=== PATIENT | female | born 1945 | race Caucasian/White ===

== ENCOUNTER 2018-07-22 12:39 | Outpatient (CLI) | payer MEDICARE ==
[2018-07-22 15:09] LABS: #Basophils 0.1 thou/uL (0.0-0.2); #Eosinphils 0.9 thou/uL (0.0-0.7); #Lymphocytes 3.2 thou/uL (1.20-3.40); #Monocytes 0.9 thou/uL (0.11-0.59); #Neutrophils 3.8 thou/uL (1.40-6.50); %Basophils 0.7 % (0.0-1.0); %Lymphocytes 36.7 % (21.0-51.0); %Neutrophils 42.6 % (42.0-75.0); Hemoglobin 13.8 g/dL (12.0-16.0); Mean Corpuscular HGB CONC 32.5 g/dL (32.0-36.0); Mean Corpuscular Hemoglobin 28.7 pg (27.0-31.0); Mean Corpuscular Volume 88.4 fL (78.0-98.0); Mean Platelet Volume 10.6 fL (7.4-10.4); Platelet Count 269 thou/uL (130-400); RBC Distribution Width 12.8 % (11.5-14.5); White Blood Cell (WBC) Count 8.8 thou/uL (4.8-10.8)
[2018-07-22 15:15] LABS: INR-International Normal Ratio 0.9; Prothrombin Time 12.5 SEC (12.0-14.7)
[2018-07-22 15:22] LABS: Bilirubin Negative (Negative); Blood, Urine Small (Negative); Clarity TURBID (Clear); Glucose, Urine (Dipstick) Negative (Negative); Leukocyte Large (Negative); Nitrite Negative (Negative); Protein, Urine (Dipstick) Negative (Neg-Trace); Specific Gravity, Urine 1.014 (1.002-1.036); Urobilinogen 0.2 mg/dL (0.2-1.0)
[2018-07-22 15:30] LABS: Bacteria/HPF 1+ HPF (None Seen); Hyaline Casts/LPF 4-6 HYALINE CAST LPF (0-3 Hyaline); Pathc Cast-AUWi Flag 1.88 (0-2.49); Squamous Epithelial 21-50 HPF (0-3)
--- NOTE | 2018-07-22 15:50 | EKG ---
Test Reason : Blood Pressure : / mmHG Vent. Rate : 061 BPM Atrial Rate : 061 BPM P-R Int : 158 ms QRS Dur : 082 ms QT Int : 398 ms P-R-T Axes : 075 063 060 degrees QTc Int : 400 ms Normal sinus rhythm Normal ECG No previous ECGs available Confirmed by BABATUNDE CORONADO ([id number]) on 07/22/2018 3:49:33 PM Referred By: GEO Confirmed By:BABATUNDE CORONADO
[2018-07-22 15:51] LABS: Anion Gap 16 mmol/L (10-20); BUN (Urea Nitrogen) 18 mg/dL (9.8-20.1); Calc. Creatinine Clearance 0 mL/min (70-130); Calcium 9.5 mg/dL (7.8-10.44); Carbon Dioxide 22 mmol/L (23-31); Chloride 105 mmol/L (98-107); Estimated GFR-MDRD 28; Glucose 84 mg/dL (83-110); Potassium 5.9 mmol/L (3.5-5.1); Sodium 137 mmol/L (136-145)
== END 2018-07-22 12:40 | disposition home or self-care (01) ==
LOC: LABBT 12:39
PROVIDERS: ATTEND Orthopaedic Surgery
DX: Z01.818 Encounter for other preprocedural examination (principal)
CPT/HCPCS: 80048; 81001; 85025; 85610; 87081; 87086; 93005; 93010

== ENCOUNTER 2018-08-02 08:34 | Inpatient (IN) | payer MEDICARE ==
--- NOTE | 2018-07-29 09:32 | HP ---
HISTORY OF PRESENT ILLNESS: The patient is a 73-year-old female with a long history of progressive p roblems with the right knee. There has been no injury. She has a history of progressive problems wi th weightbearing despite rest, restriction of activities, and cortisone injections. She did not take anti-inflammatory medications due to the previous peptic ulcer disease. The pain is interfering wit h day-to-day activities including walking, getting dressed and sleeping. PAST MEDICAL HISTORY: The patient has chronic back problems and has a spinal cord stimulator which i s followed by Dr. Pope. She has a history of hypertension, stomach ulcer, previous tonsillect orly, appendectomy, hysterectomy, and cholecystectomy. CURRENT MEDICATIONS: Include clonidine, estradiol, ____, ____, metoprolol, Zyrtec, pravastatin, 81 m g aspirin, fexofenadine, multivitamins, gabapentin, tramadol. ALLERGIES: She is allergic to TETANUS, TORADOL, PENICILLIN, CODEINE. FAMILY HISTORY/SOCIAL HISTORY/REVIEW OF SYSTEMS: Otherwise unremarkable. PHYSICAL EXAMINATION: GENERAL: Reveals an elderly healthy female. HEENT: Unremarkable. NECK: Supple. CHEST: Clear. HEART: Regular rate and rhythm. ABDOMEN: Soft, nontender. PELVIC/RECTAL/BREAST: Exams are deferred. EXTREMITIES: Pertinent findings related to the right knee. There is puffiness, no definite effusion . There is tenderness over the medial joint line and lateral joint line. Range of motion is 0 to 12 5 degrees. There is no crepitus with range of motion. There is no instability. Pulses are 1+. Deshaun rovascular exam is intact. LABORATORY AND X-RAY FINDINGS: X-rays of the right knee reveal tricompartmental DJD with narrowing m edially and laterally and minimal joint space remaining. IMPRESSION: 1. Degenerative arthritis, right knee. 2. History of hypertension. 3. History of peptic ulcer disease. 4. History of chronic back pain with spinal cord stimulator. PLAN: Right total knee replacement. The nature of the surgery, length of recovery, and potential co mplications such as infection, loss of motion, incomplete relief, thromboembolic phenomena, neurovasc ular injury, possible transfusion, and need for revision have been discussed in detail.
[2018-08-02] MEDS ORDERED: Vancomycin HCl 1.5 GM in Sodium Chloride 0.9% 250 ML 300 ML IVPB SCH ×2 (09:30→21:00)
[2018-08-02] MEDS ORDERED: Midazolam HCl 2 mg/2 ml Vial ONE (09:46)
[2018-08-02] MEDS ORDERED: Fentanyl 100 MCG/2 ML VIAL ONE ×3 (09:46→14:36)
[2018-08-02] MEDS ORDERED: Sodium Chloride 0.9% 100 ML ONE (10:25)
[2018-08-02] MEDS ORDERED: Levofloxacin 500 mg/D5W 100 ml Premix Bag ONE (10:25)
[2018-08-02 11:01] LABS: Anion Gap 13 mmol/L (10-20); BUN (Urea Nitrogen) 24 mg/dL (9.8-20.1); Calc. Creatinine Clearance 0 mL/min (70-130); Calcium 9.9 mg/dL (7.8-10.44); Carbon Dioxide 25 mmol/L (23-31); Chloride 107 mmol/L (98-107); Estimated GFR-MDRD 37; Glucose 86 mg/dL (83-110); Potassium 5.4 mmol/L (3.5-5.1); Sodium 140 mmol/L (136-145)
[2018-08-02] MEDS ORDERED: Ondansetron HCl/PF 4 MG/2 ML Vial IVP PRN (12:48)
[2018-08-02] MEDS ORDERED: Promethazine HCl 25 MG/ML VIAL IM PRN ×2 (12:48→14:35)
[2018-08-02] MEDS ORDERED: Promethazine HCl 25 MG/ML VIAL SLOW IVP PRN ×2 (12:48→16:17)
[2018-08-02] MEDS ORDERED: Bupivacaine/Epinephrine 0.25% 30 ML VIAL ONE (13:03)
[2018-08-02] MEDS ORDERED: Morphine 10 MG/ML VIAL ONE (13:03)
[2018-08-02] MEDS ORDERED: Tranexamic Acid 1,000 MG in Sodium Chloride 0.9% 100 ML IVPB SCH ×2 (14:15→16:17)
[2018-08-02] MEDS ORDERED: Bupivacaine 0.25% HCL 30 ML VIAL ONE (14:18)
[2018-08-02] MEDS ORDERED: Ropivacaine 0.5% HCl/PF (150 MG/30 ML VIAL) ONE (14:18)
[2018-08-02] MEDS ORDERED: Ondansetron PF 4 MG/2 ML Vial IVP PRN ×2 (14:35→16:17)
[2018-08-02] MEDS ORDERED: HYDROcodone/Acetaminophen 5/325 mg Tablet PO PRN ×2 (14:35)
[2018-08-02] MEDS ORDERED: Zolpidem Tartrate 5 MG TAB PO PRN ×2 (14:35→16:17)
[2018-08-02] MEDS ORDERED: traMADol HCl 50 MG TAB PO PRN ×3 (14:35→16:17)
[2018-08-02] MEDS ORDERED: Fentanyl 100 MCG/2 ML VIAL IV PRN (14:36)
[2018-08-02] MEDS ORDERED: Ondansetron PF 4 MG/2 ML Vial ONE (14:59)
[2018-08-02] MEDS ORDERED: PROPOFOL 200 MG/20 ML VIAL ONE (14:59)
[2018-08-02] MEDS ORDERED: Lidocaine 1% PF 5 ML VIAL ONE (14:59)
[2018-08-02] MEDS ORDERED: HYDROmorphone 2 MG/ML VIAL ONE (15:03)
--- NOTE | 2018-08-02 15:29 | RAD ---
RIGHT KNEE TWO VIEWS: History: Total knee post op. FINDINGS/IMPRESSION: There are recent post op changes of total knee arthroplasty in good position and alignment. Soft tiss ue air is present. POS: [facility]
[2018-08-02] MEDS ORDERED: HYDROcodone/Acetaminophen 10/325 mg Tablet PO PRN (16:17)
[2018-08-02] MEDS ORDERED: Fentanyl 100 MCG/2 ML VIAL SLOW IVP PRN (16:17)
[2018-08-02] MEDS ORDERED: diphenhydrAMINE 25 MG CAP PO PRN (16:17)
[2018-08-02] MEDS ORDERED: Acetaminophen 325 MG TAB PO PRN (16:17)
[2018-08-02] MEDS: Fentanyl 100 MCG/2 ML VIAL SLOW IVP PRN ×2 (16:26→18:24)
[2018-08-02] MEDS: Sodium Chloride 0.9% 1,000 ML IV SCH ×2 (17:30→17:31)
[2018-08-02] MEDS: HYDROcodone/Acetaminophen 10/325 mg Tablet PO PRN ×2 (17:35→23:32)
[2018-08-02] MEDS: tiZANidine HCl 4 MG TAB PO PRN (17:36)
--- NOTE | 2018-08-02 19:06 | CON ---
DATE OF CONSULTATION: 08/02/2018 PRIMARY CARE PHYSICIAN: out of town. REQUESTING PHYSICIAN: Dr. Kehinde Keith for orthopedic. REASON FOR CONSULTATION: Medical management status post right total knee arthroplasty. HISTORY OF PRESENT ILLNESS: Ms. Negron is a 73-year-old white female with a history of chronic back p roblems and a spinal cord stimulator implanted by Dr. Pope, hypertension, stomach ulcer, tonsi llectomy, interstitial cystitis. She has had a longstanding history of worsening of pain and functio n in her right knee and underwent total knee arthroplasty today. We have been consulted postop day 0 for medical management of her hypertension and other medical issues. She is currently having pain in her knee after physical therapy. She normally takes a p.r.n. clonidi ne at home which I have have ordered here and otherwise feels fine. No fevers or chills. No nausea, vomiting or diarrhea. PAST MEDICAL HISTORY: 1. Essential hypertension. 2. History of peptic ulcer disease. 3. Chronic low back pain. 4. Interstitial cystitis. HOME MEDICATIONS: 1. Clonidine 0.1 mg p.o. t.i.d. p.r.n. elevated blood pressure. 2. Aspirin 81 mg daily, currently on hold. 3. Benazepril 40 mg p.o. at bedtime. 4. Zyrtec 10 mg at bedtime. 5. Valium 5 mg as needed for pain and muscle spasm. 6. Elmiron 100 mg p.o. t.i.d. 7. Estradiol 1 mg p.o. at bedtime. 8. Fexofenadine 60 mg p.o. q.a.m. 9. Gabapentin 500 mg p.o. at bedtime. 10. Hydrochlorothiazide 25 mg q.a.m. 11. Metoprolol tartrate 50 mg p.o. q.a.m. and 25 mg p.o. q.p.m. 12. Pravastatin 40 mg p.o. at bedtime. 13. Tizanidine 8 mg p.o. t.i.d. p.r.n. muscle spasm. 14. Tramadol as needed. ALLERGIES: CODEINE, TORADOL, PENICILLINS, TETANUS VACCINE AND TOXOID. PAST SURGICAL HISTORY: Significant for tonsillectomy, appendectomy, hysterectomy, and cholecystectom y as well as spinal cord stimulator implantation. SOCIAL HISTORY: Negative for habits x3. FAMILY HISTORY: Negative for clotting or bleeding disorder, no immune dysfunction. REVIEW OF SYSTEMS: All systems reviewed and negative except as stated per HPI. PHYSICAL EXAMINATION: On physical exam, please see the nursing intake sheet. They are currently not documented in the computer chart. VITAL SIGNS: She is afebrile. Blood pressure is currently elevated. HEENT: Normocephalic, atraumatic. Pupils are equally reactive to light bilaterally, mucous membrane s are moist. No visible lesions. No thrush. NECK: Supple. No lymphadenopathy, JVD or thyromegaly. Normal carotid upstroke. There are no bruit s. LUNGS: Clear. No wheezes, no rales, no rhonchi. CARDIOVASCULAR: Normal S1, S2. No S3 or S4. She is not tachycardic. ABDOMEN: Soft, is nontender, nondistended, no mass or organomegaly. EXTREMITIES: No signs of clubbing. Trace pedal edema. She currently has a nerve block catheter int o her right leg. Site is clean, dry, and intact. MUSCULOSKELETAL: Other than her right knee, large joints appear normal. There is no evidence of inf lammation or palpable effusion. NEUROLOGIC: Cranial nerves II-XII are grossly intact. She has no focal deficits. Normal speech pat tern and 5/5 strength. LABORATORY DATA: Preoperative labs showed sodium 140, potassium 5.4, chloride 107, bicarb 25, BUN 24 ; creatinine 1.41, which is improved from her baseline; glucose of 86, and calcium 9.9. CBC on 07/22 showed a white count of 8.8, hemoglobin of 13.8, hematocrit 42.4, platelet count is 269,000. P lease note that her creatinine prior to surgery on 07/22/2018 was 1.77. ASSESSMENT AND PLAN: 1. Essential hypertension. 2. Chronic low back pain. 3. Interstitial cystitis. 4. Peptic ulcer disease. 5. Continue all home medications. We will continue to follow with you.
--- NOTE | 2018-08-02 19:11 | OP ---
DATE OF PROCEDURE: 08/02/2018 SURGEON: Kehinde Keith M.D. INTERNET DATABASE SPECIALIST: Norris Guaman PA-C ANESTHESIA: General plus adductor canal and sciatic nerve blocks. PREOPERATIVE DIAGNOSIS: Degenerative arthritis, right knee. POSTOPERATIVE DIAGNOSIS: Degenerative arthritis, right knee. PROCEDURES: Right total knee replacement with computer-assisted navigation with cemented Fernanda Tri athlon components (#5 femoral component, #4 tibial baseplate with 9 mm CS plastic insert, and A32 all plastic patellar component). NARRATIVE REPORT: After satisfactory anesthesia was induced in supine position, sequential compressi on device was placed on the nonoperative leg throughout the procedure. The patient's right leg was t hen prepped and draped in routine sterile fashion. The right leg was elevated, exsanguinated with an Esmarch bandage, and the tourniquet inflated to 300 mmHg. A gently curved medial parapatellar incis ion was made and carried down to subcutaneous tissues, and bleeding points were controlled with Bovie cautery. Medial parapatellar arthrotomy was performed, patella was dislocated laterally and portion s of the fat pad were excised for exposure. There was marked tricompartmental degenerative arthritis of the knee. Meniscal remnants and osteophytes were removed. Using the [employer]dc[employer] pinless navigation system and the appropriate guides, the distal femoral and proximal tibial articular surfaces were exc ised with an oscillating saw to accept the trial components. It was felt that #5 femoral component a nd #4 tibial baseplate with 9 mm CS plastic insert gave appropriate size, fit, and stability. The pa tellar articular surface was excised to accept an all plastic A32 component. There was good range of motion, good patellar tracking. The trial components were removed. The knee was copiously irrigate d with pulsatile lavage and bony surfaces thoroughly cleaned and dried. The permanent components wer e then cemented in a single stage using 1 package of cement premixed with 1 gram of tobramycin powder . Excess cement was removed. There was again good range of motion, good stability. The knee was th en copiously irrigated. The medial retinaculum and quadriceps mechanism was closed with interrupted #2 Vicryl and a running #2 Quill. Subcutaneous tissues were closed with running 0 Quill suture and t he skin closed with running subcuticular 3-0 Monoderm and SurgiSeal skin adhesive. Sterile bulky com pressive dressing was applied. The tourniquet deflated after 73 minutes. The foot promptly pinked u p and sequential compression device was placed on her operated leg. She was awakened, taken to recov brock room in stable condition. There were no apparent intraoperative complications. The estimated bl ood loss was less than 100 mL.
[2018-08-02] MEDS ORDERED: Sodium Chloride 0.9% 1,000 ML IV SCH (20:45)
[2018-08-02] MEDS: Loratadine 10 MG TAB PO SCH (21:32)
[2018-08-02] MEDS: Aspirin 81 mg Enteric Coated Tablet PO SCH (21:32)
[2018-08-02] MEDS: Gabapentin 100 MG CAP PO SCH (21:33)
[2018-08-02] MEDS: Senokot S 8.6-50 MG TAB PO SCH (21:33)
[2018-08-02] MEDS: Pravastatin Sodium 40 MG TAB PO SCH (21:33)
[2018-08-02] MEDS: Estradiol 1 MG TAB PO SCH (21:33)
[2018-08-02] MEDS: Ferrous Gluconate 324 MG TAB PO SCH (21:33)
[2018-08-02] MEDS ORDERED: Ibuprofen 200 MG TAB PO PRN (23:09)
[2018-08-03] MEDS: Fentanyl 100 MCG/2 ML VIAL SLOW IVP PRN ×3 (02:56→06:05)
[2018-08-03] MEDS: HYDROcodone/Acetaminophen 10/325 mg Tablet PO PRN (03:46)
[2018-08-03 05:23] LABS: Hemoglobin 11.8 g/dL (12.0-16.0); Mean Corpuscular HGB CONC 30.5 g/dL (32.0-36.0); Mean Corpuscular Hemoglobin 27.1 pg (27.0-31.0); Mean Corpuscular Volume 88.9 fL (78.0-98.0); Mean Platelet Volume 10.2 fL (7.4-10.4); Platelet Count 165 thou/uL (130-400); RBC Distribution Width 12.5 % (11.5-14.5); Red Blood Cell (RBC) Count 4.36 mill/uL (4.20-5.40); White Blood Cell (WBC) Count 7.7 thou/uL (4.8-10.8)
[2018-08-03] MEDS: tiZANidine HCl 4 MG TAB PO PRN ×2 (06:53→16:10)
[2018-08-03] MEDS ORDERED: diphenhydrAMINE 25 MG CAP PO PRN (08:16)
[2018-08-03] MEDS ORDERED: Zolpidem Tartrate 5 MG TAB PO PRN (08:16)
[2018-08-03] MEDS ORDERED: diphenhydrAMINE 50 MG/ML VIAL IM/IV PRN (08:16)
[2018-08-03] MEDS ORDERED: FEXOFENADINE HCL 60 MG PO SCH (09:00)
[2018-08-03] MEDS: Ferrous Gluconate 324 MG TAB PO SCH ×2 (09:10→21:10)
[2018-08-03] MEDS: Aspirin 81 mg Enteric Coated Tablet PO SCH ×2 (09:13→21:10)
[2018-08-03] MEDS: Multivitamin W/ Minerals 1 TAB PO SCH (09:14)
[2018-08-03] MEDS: Senokot S 8.6-50 MG TAB PO SCH ×2 (09:14→21:08)
[2018-08-03] MEDS: PENTOSAN POLYSULFATE 100 MG PO SCH (09:19)
[2018-08-03] MEDS: fentaNYL Citrate/PF 2,000 MCG in Sodium Chloride 0.9% 60 ML IV PRN (10:00)
[2018-08-03] MEDS: Sodium Chloride 0.9% 1,000 ML IV SCH ×3 (10:18→21:28)
[2018-08-03] MEDS: Hydrochlorothiazide 25 MG TAB PO SCH (14:21)
[2018-08-03] MEDS: Metoprolol Tartrate 50 MG TAB PO SCH (14:22)
[2018-08-03] MEDS: Ondansetron PF 4 MG/2 ML Vial IVP PRN (14:48)
[2018-08-03 15:18] VITALS: BMI 32.3
--- NOTE | 2018-08-03 15:59 | PDOC.PN ---
- Subjective Encounter Start Date: 08/03/18 Encounter Start Time: 08:50 no f/C, no N/V/D/c. 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 All systems reviewed and neg x as above - Objective MAR Reviewed: Yes Vital Signs & Weight: Vital Signs (12 hours) Temp Pulse Resp BP Pulse Ox 08/03/18 13:51 97.9 F 74 20 127/58 L 08/03/18 09:15 66 94 H 90/58 L 08/03/18 08:00 97.8 F 91 16 182/80 H 94 L 08/03/18 04:33 97.7 F 75 19 131/73 96 Weight Admit Weight 200 lb Weight 200 lb I&O: 08/02/18 08/03/18 08/04/18 06:59 06:59 06:59 Intake Total 950 2600 Output Total 250 1400 Balance 700 1200 Result Diagrams: 08/03/18 04:48 08/02/18 10:30 Phys Exam - Physical Examination Constitutional: NAD HEENT: PERRLA, moist MMs, sclera anicteric, oral pharynx no lesions Neck: no nodes, no JVD, supple, full ROM Respiratory: no wheezing, no rales, no rhonchi, clear to auscultation bilateral Cardiovascular: RRR, no significant murmur, no rub Gastrointestinal: soft, non-tender, no distention, positive bowel sounds Musculoskeletal: edema present Neurological: non-focal, normal sensation, moves all 4 limbs Lymphatic: no nodes Psychiatric: normal affect, A&O x 3 Skin: no rash, normal turgor, cap refill <2 seconds Dx/Plan (1) HTN (hypertension) Code(s): I10 - ESSENTIAL (PRIMARY) HYPERTENSION Status: Chronic Qualifiers: Hypertension type: essential hypertension Qualified Code(s): I10 - Essential (primary) hypertension (2) Interstitial cystitis Code(s): N30.10 - INTERSTITIAL CYSTITIS (CHRONIC) WITHOUT HEMATURIA Status: Chronic Comment: on elmiron - Plan cont current plan of care, plan discussed w/ family, PT/OT, out of bed/ambulate * .
[2018-08-03] MEDS: Promethazine HCl 25 MG/ML VIAL IM PRN (16:08)
[2018-08-03] MEDS: Ropivacaine HCl/PF 250 ML in Premix Bag 1 BAG NERVE BLCK SCH (16:29)
[2018-08-03] MEDS: Estradiol 1 MG TAB PO SCH (21:08)
[2018-08-03] MEDS: Pravastatin Sodium 40 MG TAB PO SCH (21:09)
[2018-08-03] MEDS: Loratadine 10 MG TAB PO SCH (21:09)
[2018-08-03] MEDS: Gabapentin 100 MG CAP PO SCH (21:11)
[2018-08-04] MEDS: Ondansetron PF 4 MG/2 ML Vial IVP PRN ×2 (01:11→11:57)
[2018-08-04] MEDS: fentaNYL Citrate/PF 2,000 MCG in Sodium Chloride 0.9% 60 ML IV PRN (01:57)
[2018-08-04] MEDS: tiZANidine HCl 4 MG TAB PO PRN (02:17)
[2018-08-04] MEDS: Senokot S 8.6-50 MG TAB PO SCH ×2 (08:20→21:39)
[2018-08-04] MEDS: Aspirin 81 mg Enteric Coated Tablet PO SCH ×2 (08:20→20:40)
[2018-08-04] MEDS: Ferrous Gluconate 324 MG TAB PO SCH ×2 (08:21→20:40)
[2018-08-04] MEDS: Multivitamin W/ Minerals 1 TAB PO SCH (08:21)
[2018-08-04] MEDS: PENTOSAN POLYSULFATE 100 MG PO SCH (08:22)
[2018-08-04] MEDS: Hydrochlorothiazide 25 MG TAB PO SCH ×2 (08:34→11:46)
[2018-08-04] MEDS: Metoprolol Tartrate 50 MG TAB PO SCH ×2 (08:34→11:46)
[2018-08-04] MEDS: Sodium Chloride 0.9% 1,000 ML IV SCH ×2 (09:26→17:44)
[2018-08-04] MEDS: Promethazine HCl 25 MG/ML VIAL IM PRN ×2 (13:13→16:06)
[2018-08-04] MEDS ORDERED: traMADol HCl 50 MG TAB PO PRN ×2 (13:49→13:51)
[2018-08-04] MEDS ORDERED: HYDROcodone/Acetaminophen 10/325 mg Tablet PO PRN (13:50)
[2018-08-04] MEDS: HYDROcodone/Acetaminophen 10/325 mg Tablet PO PRN ×2 (14:05→17:45)
[2018-08-04] MEDS ORDERED: Metoclopramide HCl 10 MG TAB PO SCH (16:30)
[2018-08-04] MEDS ORDERED: Polyethylene Glycol 3350 17 GM Packet PO SCH (16:30)
[2018-08-04] MEDS: cloNIDine 0.1 MG TAB PO PRN (17:45)
[2018-08-04] MEDS: Ropivacaine HCl/PF 250 ML in Premix Bag 1 BAG NERVE BLCK SCH (18:00)
[2018-08-04] MEDS: Gabapentin 100 MG CAP PO SCH (20:39)
[2018-08-04] MEDS: Estradiol 1 MG TAB PO SCH (20:40)
[2018-08-04] MEDS: Pravastatin Sodium 40 MG TAB PO SCH (20:41)
[2018-08-04] MEDS: Loratadine 10 MG TAB PO SCH (20:41)
[2018-08-05] MEDS: Sodium Chloride 0.9% 1,000 ML IV SCH ×2 (06:32→13:23)
[2018-08-05] MEDS: HYDROcodone/Acetaminophen 10/325 mg Tablet PO PRN ×2 (06:57→14:50)
--- NOTE | 2018-08-05 07:19 | PDOC.PN ---
- Subjective Encounter Start Date: 08/04/18 Encounter Start Time: 08:45 no complaints except nausea. no BM since admit, no f/C, no diarrhea, no CP or sOB asking for toradol and protonix. takes protonix at home but forgot to declare All systems reviewed and neg x as above - Objective MAR Reviewed: Yes Vital Signs & Weight: Vital Signs (12 hours) Temp Pulse Resp BP BP Pulse Ox 08/05/18 04:00 99 F 98 18 142/59 H 93 L 08/05/18 00:00 98.2 F 86 16 158/80 H 99 08/04/18 20:41 175/82 H 08/04/18 20:40 99 08/04/18 20:00 97.9 F 88 18 175/82 H 99 Weight Admit Weight 200 lb Weight 200 lb I&O: 08/04/18 08/05/18 08/06/18 06:59 06:59 06:59 Intake Total 4500 2290 Output Total 2450 5200 Balance 2049 -0 Result Diagrams: 08/03/18 04:48 08/02/18 10:30 Dx/Plan (1) HTN (hypertension) Code(s): I10 - ESSENTIAL (PRIMARY) HYPERTENSION Status: Chronic Qualifiers: Hypertension type: essential hypertension Qualified Code(s): I10 - Essential (primary) hypertension (2) Interstitial cystitis Code(s): N30.10 - INTERSTITIAL CYSTITIS (CHRONIC) WITHOUT HEMATURIA Status: Chronic Comment: on elmiron - Plan cont current plan of care, PT/OT, out of bed/ambulate * . add back protonix, defer tordaol to ortho team due to increase risk of bleeding to inpatient rehab when approved
--- NOTE | 2018-08-05 07:21 | PDOC.PN ---
- Subjective Encounter Start Date: 08/05/18 Encounter Start Time: 07:20 - Objective MAR Reviewed: Yes Vital Signs & Weight: Vital Signs (12 hours) Temp Pulse Resp BP BP Pulse Ox 08/05/18 04:00 99 F 98 18 142/59 H 93 L 08/05/18 00:00 98.2 F 86 16 158/80 H 99 08/04/18 20:41 175/82 H 08/04/18 20:40 99 08/04/18 20:00 97.9 F 88 18 175/82 H 99 Weight Admit Weight 200 lb Weight 200 lb I&O: 08/04/18 08/05/18 08/06/18 06:59 06:59 06:59 Intake Total 4500 2290 Output Total 2450 5200 Balance 2049 Result Diagrams: 08/03/18 04:48 08/02/18 10:30 Phys Exam - Physical Examination Constitutional: NAD HEENT: PERRLA, moist MMs, sclera anicteric, oral pharynx no lesions Neck: no nodes, no JVD, supple, full ROM Respiratory: no wheezing, no rales, no rhonchi, clear to auscultation bilateral Cardiovascular: RRR, no significant murmur, no rub Gastrointestinal: soft, non-tender, no distention, positive bowel sounds Musculoskeletal: no edema Neurological: non-focal, normal sensation, moves all 4 limbs Lymphatic: no nodes Psychiatric: normal affect, A&O x 3 Skin: no rash, normal turgor, cap refill <2 seconds Dx/Plan (1) HTN (hypertension) Code(s): I10 - ESSENTIAL (PRIMARY) HYPERTENSION Status: Chronic Qualifiers: Hypertension type: essential hypertension Qualified Code(s): I10 - Essential (primary) hypertension (2) Interstitial cystitis Code(s): N30.10 - INTERSTITIAL CYSTITIS (CHRONIC) WITHOUT HEMATURIA Status: Chronic Comment: on elmiron - Plan cont current plan of care, plan discussed w/ family, PT/OT, out of bed/ambulate * . to rehab today
[2018-08-05] MEDS: Aspirin 81 mg Enteric Coated Tablet PO SCH (07:58)
[2018-08-05] MEDS: Hydrochlorothiazide 25 MG TAB PO SCH (07:58)
[2018-08-05] MEDS: Metoprolol Tartrate 50 MG TAB PO SCH (07:58)
[2018-08-05] MEDS: Ferrous Gluconate 324 MG TAB PO SCH (07:58)
[2018-08-05] MEDS: Multivitamin W/ Minerals 1 TAB PO SCH (07:58)
[2018-08-05] MEDS: Senokot S 8.6-50 MG TAB PO SCH (07:59)
[2018-08-05] MEDS: PENTOSAN POLYSULFATE 100 MG PO SCH (08:00)
[2018-08-05] MEDS ORDERED: Polyethylene Glycol 3350 17 GM Packet PO SCH (09:00)
[2018-08-05] MEDS: cloNIDine 0.1 MG TAB PO PRN (10:32)
[2018-08-05] MEDS ORDERED: Diazepam 5 MG TAB PO PRN (12:02)
[2018-08-05 15:23] VITALS: BP 147/63; TEMP 98.6
--- NOTE | 2018-08-06 13:24 | DIS ---
DATE OF ADMISSION: 08/02/2018 DATE OF DISCHARGE: 08/05/2018 PREOPERATIVE DIAGNOSIS: Right knee osteoarthritis/degenerative joint disease. POSTOPERATIVE DIAGNOSIS: Right knee osteoarthritis/degenerative joint disease. PROCEDURE: The patient underwent a right total knee replacement. HOSPITAL COURSE: Hospital stay unremarkable. She was seen by our [facility] for medical issues, but otherwise had no postoperative complications. She was admitted to [address] where she worked with staff, physical therapy, occupational therapy, and progressed quite well. By postop day #3, she was ready to discharge home. DISCHARGE CONDITION: Good/stable. DISPOSITION: Home with family. FOLLOWUP: Followup would be in 2-4 weeks, sooner if there are problems or concerns. DISCHARGE MEDICATIONS: Given with usage instructions. Norris Guaman PA-C for Kehinde Keith M.D.
== END 2018-08-05 15:30 | disposition home or self-care (01) | DRG 470 ==
LOC: SDC 08:34 → SJJU 16:16
PROVIDERS: ADMIT Orthopaedic Surgery; ATTEND Orthopaedic Surgery
PROC: 0SRC0J9 Replacement of Right Knee Joint with Synthetic Substitute, Cemented, Open Approach (ICD-10-PCS; principal; 2018-08-02)
DX: M17.11 Unilateral primary osteoarthritis, right knee (principal); I10 Essential (primary) hypertension; K27.9 Peptic ulcer, site unspecified, unspecified as acute or chronic, without hemorrhage or perforation; Z79.899 Other long term (current) drug therapy; Z79.82 Long term (current) use of aspirin; Z79.891 Long term (current) use of opiate analgesic; Z88.0 Allergy status to penicillin; Z88.5 Allergy status to narcotic agent; Z88.8 Allergy status to other drugs, medicaments and biological substances; Z96.89 Presence of other specified functional implants; M54.9 Dorsalgia, unspecified; G89.29 Other chronic pain; N30.10 Interstitial cystitis (chronic) without hematuria
CPT/HCPCS: 36415; 80048; 85027; 86850; 86900; 86901; C1713; C1776; G8978-GP-CM; G8979-GP-CJ; J1170; J1200; J1956; J2001; J2250; J2270; J2405; J2550; J2704; J2795; J3010; J3370; J7050; S0020

== ENCOUNTER 2020-06-08 06:33 | Outpatient (CLI) | payer MEDICARE, OTHER ==
[2020-06-09 14:48] LABS: SARS-CoV-2 MS2 Positive; SARS-CoV-2 N Gene Negative; SARS-CoV-2 S Gene Negative; SARS-CoV-2 by NAA Not Detected (NotDetected); SARS-CoV-2 orf1ab Negative
== END 2020-06-08 06:34 | disposition home or self-care (01) ==
LOC: LABBT 06:33
PROVIDERS: ATTEND Anesthesiology Pain Medicine
DX: M54.16 Radiculopathy, lumbar region (principal); M96.1 Postlaminectomy syndrome, not elsewhere classified; G89.4 Chronic pain syndrome; Z20.828 Contact with and (suspected) exposure to other viral communicable diseases
CPT/HCPCS: 87635; U0003

== ENCOUNTER 2020-06-13 11:25 | Day surgery (SDC) | payer MEDICARE ==
[2020-06-11 12:47] VITALS: BMI 33.9
[2020-06-13] MEDS ORDERED: CEFAZOLIN 1 GM VIAL ONE (14:10)
[2020-06-13] MEDS ORDERED: Sodium Chloride 0.9% 100 ML ONE (14:10)
[2020-06-13] MEDS ORDERED: Fentanyl 100 MCG/2 ML VIAL ONE (14:17)
[2020-06-13] MEDS ORDERED: Lidocaine 2% w/Epinephrine 1:200K 20 ML VIAL ONE (14:21)
[2020-06-13] MEDS ORDERED: Bupivacaine PF 0.5% 30 ML VIAL ONE (14:21)
[2020-06-13] MEDS ORDERED: Propofol 500 MG/50 ML VIAL ONE (14:27)
[2020-06-13] MEDS ORDERED: Ondansetron PF 4 MG/2 ML Vial ONE (15:21)
[2020-06-13] MEDS ORDERED: Lidocaine 1% PF 5 ML VIAL ONE (15:21)
[2020-06-13] MEDS ORDERED: Dexamethasone 20 MG/5 ML VIAL ONE (15:21)
--- NOTE | 2020-06-13 19:59 | OP ---
DATE OF PROCEDURE: 06/13/2020 PREOPERATIVE DIAGNOSES: 1. Postlaminectomy syndrome. 2. Chronic lumbar radiculopathy. 3. Chronic pain. 4. Neurostimulator failure, malfunction. PROCEDURES PERFORMED: 1. Explant of [employer] failed IPG. 2. Implant of [employer] nonrechargeable IPG. 3. Programming with intraoperative evaluation of the existing leads. OPERATIVE FINDINGS: 1. Depleted [employer] IPG. 2. Intact previously implanted spinal cord stimulation leads. ANESTHESIA: TIVA. COMPLICATIONS: None. BLOOD LOSS: Less than 10 mL. DESCRIPTION OF PROCEDURE: Risks and benefits were discussed. Informed consent was obtained. She was taken to the OR, prepped and draped in standard fashion. The previous IPG pocket was easily identified. Lidocaine with 0.5% Marcaine mixed 50:50 with epinephrine 1:400,000 was injected for skin and subcutaneous anesthesia. Incision was carried out over the prior incision at the previous IPG, and blunt dissection was taken to easily externalize the previous implanted depleted [employer] IPG system. The set screws were loosened, and the leads were connected from the depleted IPG intact. Then, the leads were then connected to the new Daley nonrechargeable IPG. Impedances and programming were accomplished noting the leads to be intact bilateral with exception of two contacts. Programming was easily performed around these two nonfunctioning contacts. The set screws were then tightened. The new IPG was then placed in the pocket and programming ensued once again to ensure proper impedances of the contacts. The closure was then accomplished in layers with interrupted 2-0 Vicryl, and the skin was closed with a running subcuticular 3-0 Rapide. Mastisol, Steri-Strips, 4x4s, and Medipore tape were used for dressing. Prior to closure, all counts were correct x2. Job ID: [id number]
== END 2020-06-13 16:15 | disposition home or self-care (01) ==
LOC: SDC 11:25
PROVIDERS: ATTEND Anesthesiology Pain Medicine
PROC: 0JH70DZ Insertion of Multiple Array Stimulator Generator into Back Subcutaneous Tissue and Fascia, Open Approach (ICD-10-PCS; principal; 2020-06-13)
DX: M96.1 Postlaminectomy syndrome, not elsewhere classified (principal); M54.16 Radiculopathy, lumbar region; G89.4 Chronic pain syndrome; T85.113A Breakdown (mechanical) of implanted electronic neurostimulator, generator, initial encounter; I10 Essential (primary) hypertension; Z79.82 Long term (current) use of aspirin; Z79.899 Other long term (current) drug therapy; Z88.0 Allergy status to penicillin; Z88.5 Allergy status to narcotic agent; Z88.6 Allergy status to analgesic agent; Z88.7 Allergy status to serum and vaccine
CPT/HCPCS: 76000; C1767; J0690; J1100; J2405; J2704; J3010; J3490; S0020

== ENCOUNTER 2020-09-10 14:44 | Outpatient (CLI) | payer MEDICARE ==
--- NOTE | 2020-09-10 15:20 | CT ---
CT Lumbar Spine WO Con History: Low back pain Comparison: Lumbar spine CT 2012 Findings: Extensive atherosclerotic plaque with narrowing of the distal aorta. No hydronephrosis. No retroperitoneal periaortic adenopathy. Moderate levoscoliosis of the lumbar spine. Asymmetric right-sided L3/L4 degenerative disc space height loss with large disc osteophyte complex. This causes relatively high-grade right-sided neural foraminal narrowing. Also relatively large right-sided L2/L3 disc osteophyte complex also causing high-grade right-sided neural foraminal narrow ing. Moderate left L2/L3 neural foraminal narrowing due to disc bulge. No acute fracture. Old superior end plate compression deformity of L1 with 10% anterior height loss and 30% superior endplate height loss. Lumbar spine transverse processes are intact. Asymmetric left-sided high-grade facet arthropathy at L 4/L5 and L5/S1. The visualized sacrum is without fracture. No SI joint diastases. Paraspinal musculature is symmetric. Dorsal column stimulator wires enter the spinal canal at the T12 /L1 interspace. Narrowing of the interspinous space L3/L4 and L4/L5 with subcortical sclerosis and osteophyte formati on. Asymmetric left L5/S1 disc osteophyte complex with facet arthropathy causes high-grade left-sided for aminal narrowing. Disc bulge at L4/L5 mild facet arthrosis causes moderate neural foraminal narrowing. Impression: 1. No acute fracture or malalignment. 2. Old superior endplate compression deformity of L1. 3. Moderate levoscoliosis with asymmetric right-sided disc osteophyte complexes and disc bulges predo minantly at L2/L3 and L3/L4 causing high-grade neural foraminal narrowing and likely nerve root impingement. 4. Asymmetric left L5/S1 disc osteophyte complex with facet arthropathy causes high-grade neural fora haley narrowing and likely nerve root abutment.
== END 2020-09-10 14:45 | disposition home or self-care (01) ==
LOC: BICCT 14:44
PROVIDERS: ATTEND Anesthesiology Pain Medicine
DX: M48.062 Spinal stenosis, lumbar region with neurogenic claudication (principal); M41.9 Scoliosis, unspecified; M25.78 Osteophyte, vertebrae; M48.07 Spinal stenosis, lumbosacral region; M51.26 Other intervertebral disc displacement, lumbar region; M47.817 Spondylosis without myelopathy or radiculopathy, lumbosacral region
CPT/HCPCS: 72131

== ENCOUNTER 2025-04-26 11:45 | Outpatient (CLI) | payer MEDICARE | END 2025-04-26 11:46 | disposition home or self-care (01) | LOC: PET 11:45 | PROVIDERS: ATTEND Radiology Radiation Oncology | DX: C50.211 Malignant neoplasm of upper-inner quadrant of right female breast (principal); C50.812 Malignant neoplasm of overlapping sites of left female breast; Z98.890 Other specified postprocedural states; Z90.12 Acquired absence of left breast and nipple | CPT/HCPCS: 78815; A9552 ==

== ENCOUNTER 2025-08-03 11:09 | Inpatient (IN) | payer MEDICARE ==
[2025-08-03 13:11] LABS: #Basophils 0.05 10x3/uL (0.0-0.2); #Eosinophils 0.40 10x3/uL (0.0-0.7); #Monocytes 1.04 10x3/uL (0.11-0.59); #Neutrophils 7.43 10x3/uL (1.40-6.50); %Basophils 0.5 % (0.0-1.0); %Eosinophils 4.0 % (0.0-10.0); %Lymphocytes 11.4 % (21.0-51.0); %Monocytes 10.3 % (0.0-10.0); %Neutrophils 73.4 % (42.0-75.0); Hematocrit 29.9 % (36.0-47.0); Hemoglobin 9.1 g/dL (12.0-16.0); Mean Corpuscular Hemoglobin 24.1 pg (27.0-31.0); Mean Corpuscular Volume 79.1 fL (78.0-98.0); Platelet Count 313 10x3/uL (130-400); Red Blood Cell (RBC) Count 3.78 mill/uL (4.20-5.40); White Blood Cell (WBC) Count 10.11 10x3/uL (4.8-10.8)
[2025-08-03 13:13] LABS: ALT (SGPT) 18 U/L (Less than 34); AST (SGOT) 33 U/L (11-34); Albumin 2.8 g/dL (3.1-4.5); Alkaline Phosphatase 86 U/L (40-110); Anion Gap 14 mmol/L (10-20); BUN (Urea Nitrogen) 32 mg/dL (9.8-20.1); Bilirubin, Total 0.4 mg/dL (0.3-1.2); Calc. Creatinine Clearance 0 mL/min (70-130); Calcium 8.9 mg/dL (7.8-10.44); Carbon Dioxide 23 mmol/L (23-31); Chloride 107 mmol/L (98-107); Globulin 4.0 g/dL (2.4-3.5); Glucose 105 mg/dL (83-110); Lipase 23 U/L (8-78); Potassium 3.9 mmol/L (3.5-5.1); Sodium 140 mmol/L (136-145)
[2025-08-03 13:24] LABS: INR-International Normal Ratio 1.2; PTT 33.0 sec (22.9-36.1); Prothrombin Time 15.2 sec (12.0-14.7)
[2025-08-03] MEDS ORDERED: Azithromycin 500 MG VIAL ONE (15:04)
[2025-08-03] MEDS ORDERED: cefTRIAXone (ROCEPHIN) 2 GM VIAL ONE (15:04)
[2025-08-03] MEDS ORDERED: Melatonin 3 MG TAB PO PRN (15:33)
[2025-08-03] MEDS ORDERED: Ondansetron PF 4 MG/2 ML Vial IVP PRN (15:33)
[2025-08-03] MEDS ORDERED: Senokot S 8.6-50 MG TAB PO PRN (15:33)
[2025-08-03] MEDS ORDERED: Acetaminophen 325 MG TAB PO PRN (15:33)
[2025-08-03 15:52] LABS: CAUTI Indications for Culture Alt mental st,lethar; Glucose, Urine (Dipstick) Normal (Negative); Leukocyte 250 Leu/uL (Negative); Protein, Urine (Dipstick) 30 mg/dL (Neg-Trace); RBC/HPF 0-3 HPF (0-3); Specific Gravity, Urine 1.015 (1.002-1.036)
[2025-08-03 15:54] LABS: Bacteria/HPF 1+ HPF (None Seen)
[2025-08-03 15:56] LABS: Urine Culture Reflex No No
[2025-08-03 15:57] LABS: Magnesium 1.7 mg/dL (1.6-2.6)
[2025-08-03] MEDS: FLU (Fluad Triv) 25-26 (65UP)PF 45 MCG/0.5 ML Syringe IM ONE (18:14)
[2025-08-03] MEDS: NIFEdipine XL 60 MG ER.TAB PO SCH (23:36)
[2025-08-03] MEDS: HYDROcodone/Acetaminophen 7.5/325 mg Tablet PO SCH (23:36)
[2025-08-04 00:51] VITALS: BMI 31.1
[2025-08-04 03:50] LABS: #Basophils 0.05 10x3/uL (0.0-0.2); #Eosinophils 0.38 10x3/uL (0.0-0.7); #Monocytes 0.91 10x3/uL (0.11-0.59); #Neutrophils 4.18 10x3/uL (1.40-6.50); %Basophils 0.8 % (0.0-1.0); %Eosinophils 5.8 % (0.0-10.0); %Lymphocytes 15.9 % (21.0-51.0); %Monocytes 13.8 % (0.0-10.0); %Neutrophils 63.4 % (42.0-75.0); Hematocrit 26.2 % (36.0-47.0); Hemoglobin 8.0 g/dL (12.0-16.0); Mean Corpuscular Hemoglobin 24.4 pg (27.0-31.0); Mean Corpuscular Volume 79.9 fL (78.0-98.0); Platelet Count 267 10x3/uL (130-400); Red Blood Cell (RBC) Count 3.28 mill/uL (4.20-5.40); White Blood Cell (WBC) Count 6.59 10x3/uL (4.8-10.8)
[2025-08-04 04:12] LABS: Anion Gap 14 mmol/L (10-20); BUN (Urea Nitrogen) 26 mg/dL (9.8-20.1); Calc. Creatinine Clearance 30 mL/min (70-130); Calcium 8.5 mg/dL (7.8-10.44); Carbon Dioxide 22 mmol/L (23-31); Chloride 110 mmol/L (98-107); Glucose 94 mg/dL (83-110); Potassium 4.2 mmol/L (3.5-5.1); Sodium 142 mmol/L (136-145)
[2025-08-04] MEDS: Gabapentin 300 MG CAP PO SCH (04:17)
[2025-08-04] MEDS: Carvedilol 6.25 MG TAB PO SCH (09:34)
[2025-08-04] MEDS: Pantoprazole 40 MG DR.TAB PO SCH ×2 (09:37→09:41)
[2025-08-04] MEDS: NIFEdipine XL 60 MG ER.TAB PO SCH (09:37)
[2025-08-04] MEDS: HYDROcodone/Acetaminophen 7.5/325 mg Tablet PO SCH (09:40)
[2025-08-04] MEDS ORDERED: Azithromycin 500 MG in Sodium Chloride 0.9% 250 ML 250 ML IVPB SCH (15:45)
[2025-08-04] MEDS: cefTRIAXone\\ROCEPHIN 1 GM in Sodium Chloride 0.9% 100 ML IVPB SCH (16:21)
[2025-08-05] MEDS: HYDROcodone/Acetaminophen 5/325 mg Tablet PO SCH (03:57)
[2025-08-05 05:12] LABS: #Basophils 0.04 10x3/uL (0.0-0.2); #Eosinophils 0.45 10x3/uL (0.0-0.7); #Monocytes 0.89 10x3/uL (0.11-0.59); #Neutrophils 4.13 10x3/uL (1.40-6.50); %Basophils 0.6 % (0.0-1.0); %Eosinophils 6.6 % (0.0-10.0); %Lymphocytes 18.5 % (21.0-51.0); %Monocytes 13.1 % (0.0-10.0); %Neutrophils 60.8 % (42.0-75.0); Hematocrit 24.9 % (36.0-47.0); Hemoglobin 7.6 g/dL (12.0-16.0); Mean Corpuscular Hemoglobin 24.4 pg (27.0-31.0); Mean Corpuscular Volume 80.1 fL (78.0-98.0); Platelet Count 258 10x3/uL (130-400); Red Blood Cell (RBC) Count 3.11 mill/uL (4.20-5.40); White Blood Cell (WBC) Count 6.80 10x3/uL (4.8-10.8)
[2025-08-05 05:25] LABS: Anion Gap 14 mmol/L (10-20); BUN (Urea Nitrogen) 25 mg/dL (9.8-20.1); Calc. Creatinine Clearance 29 mL/min (70-130); Calcium 8.7 mg/dL (7.8-10.44); Carbon Dioxide 24 mmol/L (23-31); Chloride 111 mmol/L (98-107); Glucose 103 mg/dL (83-110); Potassium 4.4 mmol/L (3.5-5.1); Sodium 145 mmol/L (136-145)
[2025-08-05] MEDS: Gabapentin 300 MG CAP PO SCH ×2 (08:48→21:51)
[2025-08-05] MEDS ORDERED: Gabapentin 300 MG CAP PO PRN (10:20)
[2025-08-06] MEDS: Gabapentin 300 MG CAP PO PRN (01:19)
[2025-08-06 04:51] LABS: #Basophils 0.07 10x3/uL (0.0-0.2); #Eosinophils 0.56 10x3/uL (0.0-0.7); #Monocytes 1.05 10x3/uL (0.11-0.59); #Neutrophils 4.25 10x3/uL (1.40-6.50); %Basophils 0.9 % (0.0-1.0); %Eosinophils 7.2 % (0.0-10.0); %Lymphocytes 23.5 % (21.0-51.0); %Monocytes 13.5 % (0.0-10.0); %Neutrophils 54.6 % (42.0-75.0); Hematocrit 27.8 % (36.0-47.0); Hemoglobin 8.3 g/dL (12.0-16.0); Mean Corpuscular Hemoglobin 24.1 pg (27.0-31.0); Mean Corpuscular Volume 80.8 fL (78.0-98.0); Platelet Count 258 10x3/uL (130-400); Red Blood Cell (RBC) Count 3.44 mill/uL (4.20-5.40); White Blood Cell (WBC) Count 7.78 10x3/uL (4.8-10.8)
[2025-08-06 05:11] LABS: Anion Gap 17 mmol/L (10-20); BUN (Urea Nitrogen) 23 mg/dL (9.8-20.1); Calc. Creatinine Clearance 29 mL/min (70-130); Calcium 8.9 mg/dL (7.8-10.44); Carbon Dioxide 21 mmol/L (23-31); Chloride 111 mmol/L (98-107); Glucose 96 mg/dL (83-110); Potassium 4.4 mmol/L (3.5-5.1); Sodium 145 mmol/L (136-145)
[2025-08-07 05:33] LABS: #Basophils 0.06 10x3/uL (0.0-0.2); #Eosinophils 0.38 10x3/uL (0.0-0.7); #Monocytes 0.88 10x3/uL (0.11-0.59); #Neutrophils 3.74 10x3/uL (1.40-6.50); %Basophils 0.9 % (0.0-1.0); %Eosinophils 6.0 % (0.0-10.0); %Lymphocytes 20.4 % (21.0-51.0); %Monocytes 13.8 % (0.0-10.0); %Neutrophils 58.7 % (42.0-75.0); Hematocrit 24.7 % (36.0-47.0); Hemoglobin 7.5 g/dL (12.0-16.0); Mean Corpuscular Hemoglobin 24.4 pg (27.0-31.0); Mean Corpuscular Volume 80.2 fL (78.0-98.0); Platelet Count 230 10x3/uL (130-400); Red Blood Cell (RBC) Count 3.08 mill/uL (4.20-5.40); White Blood Cell (WBC) Count 6.37 10x3/uL (4.8-10.8)
[2025-08-07 05:46] LABS: Anion Gap 12 mmol/L (10-20); BUN (Urea Nitrogen) 20 mg/dL (9.8-20.1); Calc. Creatinine Clearance 34 mL/min (70-130); Calcium 8.3 mg/dL (7.8-10.44); Carbon Dioxide 23 mmol/L (23-31); Chloride 112 mmol/L (98-107); Glucose 96 mg/dL (83-110); Potassium 4.1 mmol/L (3.5-5.1); Sodium 143 mmol/L (136-145)
[2025-08-07 16:51] VITALS: TEMP 98
[2025-08-07] MEDS: Ferrous Sulfate 325 MG TAB PO SCH (17:41)
[2025-08-07] MEDS: EPOETIN ALFA-EPBX (ESRD) 10,000 UNITS/ML VIAL SC SCH (17:42)
[2025-08-07 19:32] VITALS: BP 187/64
== END 2025-08-07 19:55 | disposition home or self-care (01) | DRG 193 ==
LOC: ERS 11:09 → MSONC 14:31 → ERHOLD 14:31 → MSONC 21:59
PROVIDERS: ADMIT Internal Medicine; ATTEND Internal Medicine
DX: J18.9 Pneumonia, unspecified organism (principal); J96.01 Acute respiratory failure with hypoxia; N17.9 Acute kidney failure, unspecified; N39.0 Urinary tract infection, site not specified; I48.0 Paroxysmal atrial fibrillation; D63.1 Anemia in chronic kidney disease; E78.5 Hyperlipidemia, unspecified; I12.9 Hypertensive chronic kidney disease with stage 1 through stage 4 chronic kidney disease, or unspecified chronic kidney disease; E03.9 Hypothyroidism, unspecified; Z96.651 Presence of right artificial knee joint; K21.9 Gastro-esophageal reflux disease without esophagitis; I70.90 Unspecified atherosclerosis; N18.30 Chronic kidney disease, stage 3 unspecified; M54.50 Low back pain, unspecified; M19.90 Unspecified osteoarthritis, unspecified site; Z85.3 Personal history of malignant neoplasm of breast; Z79.890 Hormone replacement therapy; Z90.49 Acquired absence of other specified parts of digestive tract; Z88.0 Allergy status to penicillin; Z88.8 Allergy status to other drugs, medicaments and biological substances; Z88.5 Allergy status to narcotic agent; Z90.710 Acquired absence of both cervix and uterus; Z98.890 Other specified postprocedural states; Z79.899 Other long term (current) drug therapy
CPT/HCPCS: 36415; 71045; 71250; 74177; 80048; 81001; 82040; 82043; 82274; 82728; 83540; 83550; 83690; 83735; 83880; 83970; 84100; 84145; 84156; 84484; 85025; 85610; 85730; 86850; 86900; 86901; 87428; 93005; 94760; 96365; 96367; 96375; J0456; J0696; J1642; J2916; Q5105